=== PATIENT | male | born 1985 | race Caucasian/White ===

== ENCOUNTER 2024-05-28 09:41 | Emergency (ER) | payer SELFPAY ==
[2024-05-28] MEDS ORDERED: predniSONE 20 MG TAB ONE (10:40)
[2024-05-28] MEDS ORDERED: Ketorolac Tromethamine 30 MG (1 mL) VIAL ONE (10:40)
== END 2024-05-28 11:01 | disposition home or self-care (01) ==
LOC: ERS 09:41
DX: J10.1 Influenza due to other identified influenza virus with other respiratory manifestations (principal); F17.210 Nicotine dependence, cigarettes, uncomplicated
CPT/HCPCS: 71046; 87428; 96372; J1885; J7512